=== PATIENT | male | born 1990 | race Caucasian/White ===

== ENCOUNTER → 2023-03-29 12:08 | Outpatient (BNVA) | payer OTHER, SELFPAY | PROVIDERS: Visit Provider Physician Assistant | DX: S67.197A Crushing injury of left little finger, initial encounter (principal); W31.89XA Contact with other specified machinery, initial encounter | CPT/HCPCS: 73140; 99204 ==

== ENCOUNTER → 2023-04-11 13:40 | Outpatient (BNVA) | payer OTHER, SELFPAY | PROVIDERS: Visit Provider Physician Assistant | DX: S67.197A Crushing injury of left little finger, initial encounter (principal); W31.89XA Contact with other specified machinery, initial encounter | CPT/HCPCS: 99213 ==